=== PATIENT | male | born 1940 | race Caucasian/White ===

== ENCOUNTER 2016-12-29 12:41 | Emergency (ER) | payer MEDICARE, BC ==
[2016-12-29] MEDS ORDERED: NITROGLYCERIN 0.4 MG TAB SL PRN (12:50)
[2016-12-29] MEDS ORDERED: ASPIRIN 81 MG CHEWABLE CTB PO STA (12:50)
[2016-12-29] MEDS ORDERED: SODIUM CHLORIDE 0.9% FLUSH 10 ML SOL IV PRN (12:50)
[2016-12-29 12:54] VITALS: TEMP 97.6
[2016-12-29 12:57] VITALS: RESP 16
[2016-12-29 12:57] LABS: BASOPHILS % (AUTO) 1 % (0-3); EOSINOPHILS % (AUTO) 3 % (0-9); HEMATOCRIT 40 % (39-53); MEAN CORPUSCULAR HGB CONC 33.1 gm/dl (32.0-36.0); MEAN CORPUSCULAR VOLUME 83 fL (80-100); MONOCYTES % (AUTO) 8.6 % (0-12); NEUTROPHILS % (AUTO) 75.7 % (37-80)
[2016-12-29 13:17] LABS: ALBUMIN 3.4 gm/dl (3.4-5.0); ALT 22 IU/L (14-63); CALCIUM 9.6 mg/dl (8.5-10.1); GLOM FILT RATE 71 mL/min (>60); POTASSIUM 4.3 mMol/L (3.5-5.1); SODIUM 135 mMol/L (136-145)
[2016-12-29] MEDS ORDERED: ALUMINUM/MAGNESIUM 30 ML SUS PO ONE ×2 (13:30→13:57)
[2016-12-29] MEDS ORDERED: LIDOCAINE HCL 2% (VISCOUS) 20 ML SOL MT ONE ×2 (13:30→13:57)
[2016-12-29] MEDS ORDERED: LIDOCAINE HCL 2% (VISCOUS) 20 ML SOL ONE ×2 (13:33→13:59)
[2016-12-29] MEDS ORDERED: ALUMINUM/MAGNESIUM 30 ML SUS ONE ×2 (13:33→13:59)
[2016-12-29 13:40] LABS: APPEARANCE,URINE Clear; BILIRUBIN,URINE NEGATIVE (NEGATIVE); COLOR,URINE Yellow; GLUCOSE, URINE (UA) NEGATIVE (NEGATIVE); KETONES,URINE NEGATIVE (NEGATIVE); LEUKOCYTE ESTERASE ,URINE 1+ (NEGATIVE); NITRATE,URINE NEGATIVE (NEGATIVE); OCCULT BLOOD,URINE 3+ (NEG-TRACE); PH,URINE 8.5; UROBILINOGEN,URINE 0.2 (0.2-1.0 EU)
[2016-12-29 13:49] LABS: RBC,URINE 20-30 (0-3AV/HPF)
[2016-12-29 13:50] VITALS: BP 141/78; PULSE 64; O2SAT 97
== END 2016-12-29 14:55 | disposition home or self-care (01) | DRG 392 ==
LOC: ED 12:41
DX: K20.9 Esophagitis, unspecified (principal); N39.0 Urinary tract infection, site not specified; Z79.01 Long term (current) use of anticoagulants
CPT/HCPCS: 71020; 80053; 81001; 82550; 83735; 83880; 84484; 85025; 85610; 87088; 93005; 99284

== ENCOUNTER 2017-03-12 21:08 | Emergency (ER) | payer MEDICARE, BC ==
[2017-03-12] MEDS ORDERED: HYDROMORPHONE HCL 2 MG/ML SOL IV ONE ×3 (22:15→23:36)
[2017-03-12] MEDS ORDERED: HYDROMORPHONE HCL 2 MG/ML SOL ONE ×2 (22:18→22:34)
[2017-03-12 22:25] LABS: BASOPHILS % (AUTO) 1 % (0-3); EOSINOPHILS % (AUTO) 2 % (0-9); HEMATOCRIT 38 % (39-53); MEAN CORPUSCULAR HGB CONC 34.5 gm/dl (32.0-36.0); MONOCYTES % (AUTO) 7.7 % (0-12); NEUTROPHILS % (AUTO) 80.9 % (37-80)
[2017-03-12] MEDS ORDERED: ONDANSETRON HCL 4 MG/2 ML SOL IV ONE (22:40)
[2017-03-12 22:42] LABS: ALBUMIN 3.5 gm/dl (3.4-5.0); CALCIUM 8.6 mg/dl (8.5-10.1); POTASSIUM 4.6 mMol/L (3.5-5.1)
[2017-03-12] MEDS ORDERED: ONDANSETRON HCL 4 MG/2 ML SOL ONE (22:42)
[2017-03-12 22:49] LABS: MEAN CORPUSCULAR VOLUME 81 fL (80-100)
[2017-03-12 23:36] VITALS: RESP 16
[2017-03-12 23:56] VITALS: TEMP 98.4
[2017-03-13] MEDS: SODIUM CHLORIDE 0.9% FLUSH 10 ML SOL IV PRN ×2 (00:06→00:19)
[2017-03-13] MEDS ORDERED: KETOROLAC TROMETHAMINE 30 MG/ML SOL IV ONE (00:06)
[2017-03-13] MEDS ORDERED: KETOROLAC TROMETHAMINE 30 MG/ML SOL ONE (00:14)
[2017-03-13] MEDS ORDERED: SODIUM CHLORIDE 0.9% 1000ML 1,000 ML IV ONE (00:42)
[2017-03-13 01:06] VITALS: BP 172/84; PULSE 105; O2SAT 95
== END 2017-03-13 00:48 | disposition short-term general hospital (02) | DRG 700 ==
LOC: ED 21:08
DX: T83.192A Other mechanical complication of indwelling ureteral stent, initial encounter (principal); N32.89 Other specified disorders of bladder; R33.9 Retention of urine, unspecified; Z79.01 Long term (current) use of anticoagulants
CPT/HCPCS: 51798; 74177; 80053; 85025; 85610; 96374; 96375; 99284; 99285; J1170; J1885; J2405; Q9967

== ENCOUNTER 2018-02-19 15:21 | Emergency (ER) | payer MEDICARE, BC ==
[2018-02-19 15:34] VITALS: TEMP 97.3
[2018-02-19 15:58] LABS: INR 2.8 (0.86-1.12)
[2018-02-19 16:03] LABS: APPEARANCE,URINE Cloudy; BILIRUBIN,URINE 1+ (NEGATIVE); COLOR,URINE Dark yellow; GLUCOSE, URINE (UA) NEGATIVE (NEGATIVE); KETONES,URINE TRACE (NEGATIVE); LEUKOCYTE ESTERASE ,URINE NEGATIVE (NEGATIVE); NITRATE,URINE NEGATIVE (NEGATIVE); OCCULT BLOOD,URINE 3+ (NEG-TRACE); UROBILINOGEN,URINE 0.2 (0.2-1.0 EU)
[2018-02-19 16:03] LABS: ALBUMIN 2.4 gm/dl (3.4-5.0); BILIRUBIN,TOTAL 1.2 mg/dl (0.2-1.0); CALCIUM 8.1 mg/dl (8.5-10.1); CARBON DIOXIDE 25.5 mEq/L (21-32); CREATININE 1.52 mg/dl (0.80-1.30); HEMATOCRIT 34 % (39-53); HEMOGLOBIN 11.2 gm/dl (13.5-17.7); MAGNESIUM 1.8 mg/dl (1.8-2.4); MEAN CORPUSCULAR HEMOGLOBIN 27.2 pg (27.0-32.0); MEAN CORPUSCULAR HGB CONC 32.5 gm/dl (32.0-36.0); MEAN CORPUSCULAR VOLUME 84 fL (80-100); POTASSIUM 4.1 mMol/L (3.5-5.1); TOTAL PROTEIN 6.2 gm/dl (6.4-8.2)
[2018-02-19 16:22] LABS: BACTERIA 2+ (< 1+); CRYSTALS 1+ AMORPHOUS URATES (0-3 AVE/HPF); ICTOTEST,URINE NEGATIVE (NEGATIVE); WBC,URINE 0-4 (0-5AV/HPF)
[2018-02-19 16:43] LABS: BAND NEUTROPHILS % (MANUAL) 2 %; EOSINOPHILS % (MANUAL) 0 % (0-9); LYMPHOCYTES % (MANUAL) 48 % (10-50); MONOCYTES % (MANUAL) 8 % (0-12); NEUTROPHILS % (MANUAL) 41 % (37-80)
[2018-02-19 16:44] LABS: BASOPHILS % (MANUAL) 1 % (0-3)
[2018-02-19 16:45] LABS: ANISOCYTOSIS SLIGHT; OVALOCYTES PRESENT; POIKILOCYTOSIS SLIGHT
[2018-02-19 19:27] VITALS: O2SAT 96
[2018-02-19 19:28] VITALS: BP 137/61; PULSE 82; RESP 20
== END 2018-02-19 19:30 | disposition home or self-care (01) | DRG 914 ==
LOC: ED 15:21
DX: S09.90XA Unspecified injury of head, initial encounter (principal); R53.83 Other fatigue; I48.91 Unspecified atrial fibrillation; R39.9 Unspecified symptoms and signs involving the genitourinary system
CPT/HCPCS: 70450; 71250; 74176; 80053; 81001; 83735; 84100; 85007; 85027; 85610; 87088; 99284; 99285